=== PATIENT | female | born 1965 | race Caucasian/White ===

== ENCOUNTER 2025-05-17 09:47 | Outpatient (REF) | payer OTHER, SELFPAY ==
[2025-05-17 21:20] LABS: HCT 44.4 % (36.0-46.0); HGB 14.5 g/dL (11.2-15.7); MCH 30.9 pg (27.0-33.0); MCHC 32.7 % (32.0-36.0); MCV 95 fL (80-95); MPV 10.8 fL (8.0-11.0); Platelet Count 321 10^3/uL (130-400); RBC 4.70 10^6/uL (3.93-5.22); RDW 12.2 % (11.7-14.6); RDW-SD 42.6 fL; WBC 6.86 10^3/uL (4.4-10.8)
[2025-05-17 21:52] LABS: ALT 32 U/L (14-59); AST 22 U/L (15-37); Albumin 4.2 g/dL (3.4-5.0); Alkaline Phosphatase 94 U/L (46-116); Anion Gap 6.7 mmol/L (3-11); BUN 15 mg/dL (7-18); Bilirubin, Total 0.7 mg/dL (0.2-1.0); CO2 29.3 mmol/L (21.0-32.0); Calcium 9.3 mg/dL (8.5-10.1); Calculated LDL 98 mg/dL (<100); Chloride 106 mmol/L (98-107); Cholesterol 180 mg/dL (<200); Estimated GFR 85.35 (mL/min/1.73m2); Glucose 94 mg/dL (74-106); HDL Cholesterol 68 mg/dL (>or=50); Potassium 4.6 mmol/L (3.5-5.1); Sodium 142 mmol/L (136-145); Total Protein 7.6 g/dL (6.4-8.2); Triglyceride 74 mg/dL (<150)
== END 2025-05-17 09:48 | disposition home or self-care (01) ==
LOC: NCHCN 09:47
PROVIDERS: PCP Internal Medicine; Visit Provider Internal Medicine
DX: E78.2 Mixed hyperlipidemia (principal); I10 Essential (primary) hypertension
CPT/HCPCS: 80053; 80061; 85027